=== PATIENT | male | born 2000 ===

== ENCOUNTER 2022-05-19 02:23 | Emergency (ER) | payer SELFPAY | END 2022-05-19 07:03 | disposition home or self-care (01) | LOC: ERS 02:23 | DX: S00.83XA Contusion of other part of head, initial encounter (principal); F10.129 Alcohol abuse with intoxication, unspecified; W03.XXXA Other fall on same level due to collision with another person, initial encounter; Y90.5 Blood alcohol level of 100-119 mg/100 ml | CPT/HCPCS: 36416; 70450; 72125 ==